=== PATIENT | female | born 1985 | race Caucasian/White ===

== ENCOUNTER 2019-05-24 15:55 | Observation (INO) | payer OTHER ==
[~2019-05-24] VITALS: Ht 154.9 cm; Wt 95.9 kg
[2019-05-24] MEDS ORDERED: FOLI1 PO (17:08)
[2019-05-24] MEDS ORDERED: CALC-1038 PO (17:08)
[2019-05-24] MEDS ORDERED: PREN-217 PO (17:08)
[2019-05-24 17:10] VITALS: BP 123/80
[2019-05-24 17:32] LABS: BASOPHILS % (AUTO) 0.4 % (0.0-2.0); EOSINOPHILS % (AUTO) 0.4 % (1.0-6.0); HEMATOCRIT 35.2 % (36-46); HEMOGLOBIN 11.6 g/dL (12.0-16.0); LYMPHOCYTES # (AUTO) 2.6 K/uL (1.0-4.8); LYMPHOCYTES % (AUTO) 25.9 % (22.0-44.0); MEAN CORPUSCULAR HEMOGLOBIN 29.7 pg (26.0-34.0); MEAN CORPUSCULAR HGB CONC 32.9 G/dL (31.0-37.0); MEAN CORPUSCULAR VOLUME 90 fL (80-100); MONOCYTES # (AUTO) 0.5 K/uL (0.1-1.0); MONOCYTES % (AUTO) 5.3 % (2.0-9.0); NEUTROPHILS # (AUTO) 6.9 K/uL (1.8-7.7); PLATELET COUNT (AUTO) 274 K/uL (150-450); RED CELL DISTRIBUTION WIDTH 14.6 % (11.5-14.5)
[2019-05-24 17:59] LABS: ANION GAP 11 mmol/L (8-16); CALCIUM, TOTAL 8.6 mg/dL (8.8-10.5); CARBON DIOXIDE 22 mmol/L (22-29); CHLORIDE 105 mmol/L (98-107); CREATININE 0.71 mg/dL (0.60-1.30); GLOMERULAR FILTR. RATE CALC > 60 mL/min (>60); GLUCOSE,RANDOM 92 mg/dL (70-110); POTASSIUM 3.5 mmol/L (3.5-5.1); SODIUM SERUM 138 mmol/L (136-145); UREA NITROGEN, BLOOD 10 mg/dL (7-18)
[2019-05-24 18:04] LABS: ALANINE AMINOTRANSFERASE 20 U/L (12-78); ALBUMIN 2.4 g/dL (3.4-5.0); ALKALINE PHOSPHATASE 131 U/L (46-116); ASPARTATE AMINOTRANSFERASE 16 U/L (15-37); BILIRUBIN,TOTAL 0.1 mg/dL (0.1-1.0); TOTAL PROTEIN, SERUM 6.4 g/dL (6.4-8.2)
== END 2019-05-24 20:24 | disposition home or self-care (01) ==
LOC: 4S 15:55
PROVIDERS: ADMIT Obstetrics & Gynecology; ATTEND Obstetrics & Gynecology
DX: O26.613 Liver and biliary tract disorders in pregnancy, third trimester (principal); O09.523 Supervision of elderly multigravida, third trimester; R03.0 Elevated blood-pressure reading, without diagnosis of hypertension; Z3A.34 34 weeks gestation of pregnancy
CPT/HCPCS: 36415; 80053; 81002; 82239; 85025; G0378

== ENCOUNTER 2019-06-12 05:00 | Inpatient (IN) | payer OTHER ==
[~2019-06-12] VITALS: Ht 154.9 cm; Wt 98.4 kg
[~2019-06-12 05:00] MED LIST: CALC-1038 PO; FOLI1 PO; PREN-217 PO
[2019-06-12] MEDS ORDERED: OXYTOCIN 30 UNITS/LACT RINGERS 500 ML IV ONE (06:10)
[2019-06-12] MEDS ORDERED: RINGERS SOLUTION,LACTATED 1,000 ML IV PRN (06:10)
[2019-06-12] MEDS ORDERED: METHYLERGONOVINE MALEATE 0.2 MG/ML VIAL IM PRN (06:15)
[2019-06-12] MEDS ORDERED: CITRIC ACID/SODIUM CITRATE 30 ML SOLUTION UDCUP PO PRN (06:15)
[2019-06-12 06:51] LABS: BASOPHILS % (AUTO) 0.4 % (0.0-2.0); EOSINOPHILS % (AUTO) 0.6 % (1.0-6.0); HEMATOCRIT 37.4 % (36-46); HEMOGLOBIN 12.5 g/dL (12.0-16.0); LYMPHOCYTES # (AUTO) 3.1 K/uL (1.0-4.8); LYMPHOCYTES % (AUTO) 32.7 % (22.0-44.0); MEAN CORPUSCULAR HGB CONC 33.4 G/dL (31.0-37.0); MEAN CORPUSCULAR VOLUME 90 fL (80-100); MONOCYTES # (AUTO) 0.7 K/uL (0.1-1.0); NEUTROPHILS # (AUTO) 5.6 K/uL (1.8-7.7); NEUTROPHILS % (AUTO) 59.3 % (40.0-70.0); PLATELET COUNT (AUTO)-OB 275 K/uL (150-450); RED BLOOD CELL COUNT(AUTO) 4.18 MIL/uL (4.00-5.20); RED CELL DISTRIBUTION WIDTH 14.5 % (11.5-14.5)
[2019-06-12] MEDS: RINGERS SOLUTION,LACTATED 1,000 ML IV SCH ×3 (06:59→18:37)
[2019-06-12 07:21] VITALS: BP 117/71
[2019-06-12] MEDS: OXYGEN THERAPY IH SCH ×2 (08:00→20:00)
[2019-06-12] MEDS ORDERED: DINOPROSTONE 10 MG VAGINAL SUPPOSITORY VG ONE (09:00)
[2019-06-12] MEDS: FentaNYL CITRATE-PF 100 MCG/2 ML VIAL IVP PRN ×4 (16:41→21:56)
[2019-06-12] MEDS ORDERED: OXYTOCIN 30 UNITS/LACT RINGERS 500 ML IV PRN (22:00)
[2019-06-12] MEDS ORDERED: URSO300C4 PO (23:48)
[2019-06-13] MEDS: RINGERS SOLUTION,LACTATED 1,000 ML IV SCH ×3 (00:02→08:31)
[2019-06-13] MEDS: FentaNYL CITRATE-PF 100 MCG/2 ML VIAL IVP PRN ×2 (01:49→01:54)
[2019-06-13] MEDS ORDERED: LIDOCAINE/PF 2% 5 ML VIAL ONE (04:02)
[2019-06-13] MEDS ORDERED: ROPIVACAINE HCL/PF 0.2% 100 ML ED ONE (04:02)
[2019-06-13] MEDS ORDERED: DiphenhydrAMINE HCL 50 MG/ML VIAL IVP PRN (04:30)
[2019-06-13] MEDS ORDERED: NALBUPHINE HCL 10 MG/ML VIAL IVP PRN (04:30)
[2019-06-13] MEDS ORDERED: ROPIVACAINE HCL/PF 0.2% 100 ML ED PRN (04:30)
[2019-06-13] MEDS ORDERED: ONDANSETRON HCL 4 MG/2 ML VIAL IVP PRN (04:30)
[2019-06-13] MEDS ORDERED: OXYTOCIN 30 UNITS/LACT RINGERS 500 ML IV ONE (10:40)
[2019-06-13] MEDS ORDERED: BENZOCAINE 20%/MENTHOL 56 GM SPRAY CANISTER TP PRN (10:45)
[2019-06-13] MEDS ORDERED: LANOLIN 7 GM OINTMENT TP PRN (10:45)
[2019-06-13] MEDS ORDERED: LIDOCAINE/PF 1% 30 ML VIAL INJ PRN (10:45)
[2019-06-13] MEDS ORDERED: OxyCODONE HCL/ACETAMINOPHEN 5-325 MG TABLET PO PRN ×2 (10:45)
[2019-06-13] MEDS ORDERED: GLYCERIN/WITCH HAZEL LEAF 40 PADS JAR TP PRN (10:45)
[2019-06-13] MEDS: IBUPROFEN 800 MG TABLET PO PRN ×3 (12:29→21:46)
[2019-06-13 19:40] VITALS: BP 100/58
[2019-06-13] MEDS: MAGNESIUM HYDROXIDE SUSPENSION 30 ML UDCUP PO PRN (21:44)
[2019-06-14 05:32] LABS: BASOPHILS % (AUTO) 0.4 % (0.0-2.0); EOSINOPHILS % (AUTO) 0.8 % (1.0-6.0); HEMOGLOBIN 11.3 g/dL (12.0-16.0); LYMPHOCYTES # (AUTO) 4.1 K/uL (1.0-4.8); LYMPHOCYTES % (AUTO) 28.3 % (22.0-44.0); MEAN CORPUSCULAR HGB CONC 33.3 G/dL (31.0-37.0); MEAN CORPUSCULAR VOLUME 90 fL (80-100); MONOCYTES # (AUTO) 0.8 K/uL (0.1-1.0); MONOCYTES % (AUTO) 5.2 % (2.0-9.0); NEUTROPHILS # (AUTO) 9.4 K/uL (1.8-7.7); NEUTROPHILS % (AUTO) 65.3 % (40.0-70.0); PLATELET COUNT (AUTO)-OB 244 K/uL (150-450); RED BLOOD CELL COUNT(AUTO) 3.77 MIL/uL (4.00-5.20)
[2019-06-14] MEDS: IBUPROFEN 800 MG TABLET PO PRN (08:10)
[2019-06-14] MEDS: MAGNESIUM HYDROXIDE SUSPENSION 30 ML UDCUP PO PRN (08:10)
[2019-06-14] MEDS ORDERED: IBUP-2071 PO (08:43)
[2019-06-14] MEDS ORDERED: DSS100 PO (08:43)
== END 2019-06-14 11:25 | disposition home or self-care (01) | DRG 806 ==
LOC: 4S 05:00 → OBSVTOIN 05:00
PROVIDERS: ADMIT Obstetrics & Gynecology; ATTEND Obstetrics & Gynecology
PROC: 10E0XZZ Delivery of Products of Conception, External Approach (ICD-10-PCS; principal; 2019-06-13)
PROC: 0KQM0ZZ Repair Perineum Muscle, Open Approach (ICD-10-PCS; 2019-06-13)
PROC: 3E0R3BZ Introduction of Anesthetic Agent into Spinal Canal, Percutaneous Approach (ICD-10-PCS; 2019-06-13)
PROC: 00HU33Z Insertion of Infusion Device into Spinal Canal, Percutaneous Approach (ICD-10-PCS; 2019-06-13)
DX: O69.81X0 Labor and delivery complicated by cord around neck, without compression, not applicable or unspecified (principal); O71.4 Obstetric high vaginal laceration alone; Z37.0 Single live birth; Z3A.37 37 weeks gestation of pregnancy
CPT/HCPCS: 86850; 86900; 86901; 86920; J2590; J2795; J3010; J3490; J7120